=== PATIENT | female | born 1955 | race Caucasian/White ===

== ENCOUNTER 2019-01-02 14:02 | Emergency (ER) | payer MEDICAID, MEDICARE ==
[~2019-01-02] VITALS: Ht 152.4 cm; Wt 54.5 kg
[2019-01-02 14:07] VITALS: BP 183/119
== END 2019-01-02 17:24 | disposition left against medical advice (07) ==
LOC: ER 14:03
DX: Z00.8 Encounter for other general examination (principal); Z53.21 Procedure and treatment not carried out due to patient leaving prior to being seen by health care provider

== ENCOUNTER 2023-09-27 11:35 | Outpatient (CLI) | payer BC, MEDICAID | END 2023-09-27 23:59 | disposition home or self-care (01) | LOC: RAD 11:35 | PROVIDERS: ATTEND Family Medicine | DX: Z12.2 Encounter for screening for malignant neoplasm of respiratory organs (principal); F17.210 Nicotine dependence, cigarettes, uncomplicated; R05.3 Chronic cough; R06.02 Shortness of breath; I77.810 Thoracic aortic ectasia | CPT/HCPCS: 71271 ==

== ENCOUNTER 2024-03-23 13:03 | Emergency (ER) | payer BC, MEDICAID ==
[~2024-03-23] VITALS: Ht 162.6 cm; Wt 52.1 kg
[2024-03-23 13:07] VITALS: TEMP 98
[2024-03-23] MEDS: HYDROcodone/acetaminophen 10/325mg tab PO ONE (13:57)
[2024-03-23 14:38] VITALS: BP 160/128; PULSE 82; RESP 14; O2SAT 93
[2024-03-23] MEDS ORDERED: HYDR-3965 PO (15:08)
[2024-03-23] MEDS ORDERED: CYCL-1 PO (15:08)
[2024-03-23] MEDS ORDERED: LIDO700A32 TD (15:08)
== END 2024-03-23 15:18 | disposition home or self-care (01) ==
LOC: ER 13:04
DX: S22.31XA Fracture of one rib, right side, initial encounter for closed fracture (principal); T14.8XXA Other injury of unspecified body region, initial encounter; Z88.8 Allergy status to other drugs, medicaments and biological substances; W01.0XXA Fall on same level from slipping, tripping and stumbling without subsequent striking against object, initial encounter; Y93.89 Activity, other specified; Y92.89 Other specified places as the place of occurrence of the external cause; Y99.8 Other external cause status
CPT/HCPCS: 71101; 72100; 99284

== ENCOUNTER 2024-04-12 18:34 | Emergency (ER) | payer BC, MEDICAID ==
[~2024-04-12] VITALS: Ht 167.6 cm; Wt 50.9 kg
[~2024-04-12 18:34] MED LIST: CYCL-1 PO; HYDR-3965 PO; LIDO700A32 TD
[2024-04-12 18:45] VITALS: BP_DIAS 129; TEMP 97.8; O2SAT 98
[2024-04-12] MEDS: ondansetron 4mg rapidly disintigrating tab PO ONE (20:01)
[2024-04-12] MEDS: morphine 4 MG/ML inj SYRINge IM ONE (20:02)
[2024-04-12] MEDS ORDERED: TRAM50TA2 PO (20:47)
[2024-04-12] MEDS: HYDROcodone/acetaminophen 10/325mg tab PO ONE (20:52)
[2024-04-12 20:55] VITALS: RESP 16
[2024-04-12] MEDS ORDERED: hyDRALAzine 10mg tablet PO SCH (21:05)
[2024-04-12 21:15] VITALS: BP_SYST 191; PULSE 84
[2024-04-12] MEDS: hyDRALAzine 10mg tablet PO ONE (21:15)
== END 2024-04-12 21:58 | disposition home or self-care (01) ==
LOC: ER 18:35
DX: M54.59 Other low back pain (principal); R07.81 Pleurodynia; Z88.8 Allergy status to other drugs, medicaments and biological substances; Z79.899 Other long term (current) drug therapy; W18.39XA Other fall on same level, initial encounter; Y93.89 Activity, other specified; Y92.89 Other specified places as the place of occurrence of the external cause; Y99.8 Other external cause status
CPT/HCPCS: 72128; 93005; 96372; 99285; J2270

== ENCOUNTER 2024-08-23 14:55 | Emergency (ER) | payer BC, MEDICAID ==
[~2024-08-23] VITALS: Ht 170.2 cm; Wt 44.0 kg
[~2024-08-23 14:55] MED LIST changes: -CYCL-1 PO; +GABA300C PO; -HYDR-3965 PO; -LIDO700A32 TD; +LOSA1TAB41 PO; +POTA8CAP20 PO; +SERT-433 PO; +TEMA15CA PO
[2024-08-23 15:08] VITALS: BP 195/135; PULSE 80; RESP 16; TEMP 98.1; O2SAT 97
[2024-08-23 16:41] LABS: EOSINOPHILS # (AUTO) 0.1 X10'3 (0-0.9); NEUTROPHILS # (AUTO) 5.7 X10'3 (1.8-7.7); RED BLOOD COUNT 5.17 X10'6 (4.20-5.60)
[2024-08-23 16:42] LABS: BASOPHILS # (AUTO) 0.1 X10'3 (0-0.2); BASOPHILS % (AUTO) 0.7 % (0-1); EOSINOPHILS % (AUTO) 1.1 % (0-6); HEMATOCRIT 49.9 % (35.0-45.0); HEMOGLOBIN 16.7 g/dl (12.0-16.0); LYMPHOCYTES % (AUTO) 13.6 % (21-51); MEAN CORPUSCULAR HEMOGLOBIN 32.4 PG (27.0-31.0); MEAN CORPUSCULAR HGB CONC 33.5 g/dL (33.0-36.5); MEAN CORPUSCULAR VOLUME 96.7 FL (78-98); MEAN PLATELET VOLUME 6.8 FL (7.4-10.4); MONOCYTES # (AUTO) 0.6 X10'3 (0-0.9); MONOCYTES % (AUTO) 7.7 % (2-12); NEUTROPHILS % (AUTO) 76.9 % (42-75); PLATELET COUNT 296 X10'3 (140-440); RED CELL DISTRIBUTION WIDTH 16.1 % (11.5-14.5); WHITE BLOOD COUNT 7.4 X10'3 (4.5-11.0)
[2024-08-23 16:57] LABS: ALANINE AMINOTRANSFERASE 17 U/L (12-78); ALBUMIN/GLOBULIN RATIO 1.1 (1.1-1.5); ALKALINE PHOSPHATASE 245 IU/L (46-116); ANION GAP 11 (8-16); ASPARTATE AMINO TRANSFERASE 21 U/L (10-37); BILIRUBIN,TOTAL 0.8 MG/DL (0.1-1.0); BLOOD UREA NITROGEN 15 MG/DL (7-18); BUN/CREATININE RATIO 20.3 (10.0-20.0); CALCIUM 9.6 MG/DL (8.5-10.1); CHLORIDE 98 MMOL/L (99-107); CREATININE 0.74 MG/DL (0.40-0.90); GLUCOSE 114 MG/DL (70-104); POTASSIUM 3.3 MMOL/L (3.5-5.1); SODIUM 138 MMOL/L (135-145); TOTAL PROTEIN 7.6 G/DL (6.4-8.2); eCRCL 49 ML/MIN; eGFR 78 ML/MIN
[2024-08-23 17:04] LABS: PRO BRAIN NATRIURETIC PEPTIDE 519 PG/ML (0-125)
== END 2024-08-23 22:19 | disposition left against medical advice (07) ==
LOC: ER 14:56
DX: I10 Essential (primary) hypertension (principal); Z88.8 Allergy status to other drugs, medicaments and biological substances; Z53.21 Procedure and treatment not carried out due to patient leaving prior to being seen by health care provider
CPT/HCPCS: 36415; 80053; 83880; 84484; 85025